=== PATIENT | male | born 1960 | race African-American/Black ===

== ENCOUNTER 2016-08-18 14:54 | Emergency (ER) | payer OTHER ==
[2014-02-09 15:28] VITALS: BP 159/97
[~2016-08-18 14:54] MED LIST: ALPR0.254 PO; ASPI-482 PO; CYCL5TAB PO; HYDR12.58 PO; LISI40TA PO; METH5TAB2 PO; METO50TA2 PO
[2016-08-24] MEDS ORDERED: HYDR-971 PO (11:16)
== END 2016-08-18 15:19 | disposition left against medical advice (07) ==
LOC: ER 14:54
DX: R10.9 Unspecified abdominal pain (principal); Z53.21 Procedure and treatment not carried out due to patient leaving prior to being seen by health care provider

== ENCOUNTER → 2016-10-08 | Outpatient (CLI) | payer OTHER ==
[2016-08-24 11:00] VITALS: BP 162/67
[~2016-10-08] MED LIST changes: +GADOBUTROL 10 MMOL/10 ML VIAL IV ONE; +HYDR-971 PO
--- NOTE | 2016-10-08 15:09 | RAD ---
EXAM: MRI abdomen with and without contrast HISTORY: Abdominal pain and back pain. Assess for pancreatic mass. TECHNIQUE: MRI of the abdomen was performed before and after the intravenous administration of 10 mL Gadavist. Three-dimensional reconstructions of the biliary tree were also performed. COMPARISON: 08/24/2016. FINDINGS: Liver: The liver is not completely included on all series. There is no significant steatosis. There are no suspicious hepatic lesions. Biliary tree: The gallbladder is unremarkable. The common duct is not dilated. There are no suspicious pancreatic parenchymal lesions. The pancreatic duct is at the upper limits of normal caliber at 3.5 mm. There are multiple mildly dilated pancreatic ductal side branches. Other findings: There is an enhancing T2 hyperintense mass posteriorly in the right interpolar region that measures 1.7 cm. This is consistent with a small renal cell carcinoma. There is a small cyst in the left kidney. There is some atherosclerotic irregularity along the left aspect of the abdominal aorta. There may be a penetrating atherosclerotic ulcer on the left measures 10 x 5 mm. There is no interval change since 08/24/2016. The adrenal glands and spleen are unremarkable. IMPRESSION: 1. 1.7 cm enhancing mass in the right kidney consistent with a small renal cell carcinoma. Ongoing follow-up/management is recommended. 2. No pancreatic parenchymal mass is appreciated. Mild prominence of the pancreatic duct and its side branches can be seen in the setting of chronic pancreatitis. Correlate for such history. 3. Moderate atherosclerotic irregularity of the abdominal aorta, possibly with a stable small penetrating atherosclerotic ulcer on the left. Correlate for this is a cause of symptoms.
== END | disposition home or self-care (01) ==
LOC: MRI 11:30
PROVIDERS: ATTEND Internal Medicine Gastroenterology
DX: K86.9 Disease of pancreas, unspecified (principal); N28.89 Other specified disorders of kidney and ureter; C64.1 Malignant neoplasm of right kidney, except renal pelvis
CPT/HCPCS: 74183

== ENCOUNTER 2017-03-13 19:52 | Emergency (ER) | payer OTHER ==
[~2017-03-13] VITALS: Ht 180.3 cm; Wt 117.9 kg
[~2017-03-13 19:52] MED LIST changes: -GADOBUTROL 10 MMOL/10 ML VIAL IV ONE
[2017-03-13] MEDS ORDERED: ONDANSETRON PF 4 MG/2 ML VIAL. IV ONE (20:30)
[2017-03-13] MEDS ORDERED: IV NORMAL SALINE 500ML BAG 500 ML IV ONE (20:30)
[2017-03-13 20:42] LABS: BILIRUBIN,URINE NEGATIVE (NEG); GLUCOSE,URINE NEGATIVE (NEG); NITRITE,URINE NEGATIVE (NEG); PH,URINE 6.5; PROTEIN,URINE NEGATIVE (NEG-TRACE)
[2017-03-13] MEDS: fentaNYL PF VIAL 100 MCG/2 ML VIAL IV PRN ×2 (20:55→22:55)
[2017-03-13 20:59] LABS: BACTERIA,URINE 0 /HPF (0-FEW); RBC,URINE OCC /HPF (0-2); SQUAMOUS EPITHELIAL CELL,UR FEW /LPF; WBC,URINE OCC /HPF (0-4)
[2017-03-13 21:03] LABS: BASO # 0.1 x10^3/uL (0.0-0.2); BASO % 1 % (0-3); EOS % 3 % (0-3); HEMATOCRIT 44.4 % (39.0-53.0); LYMPH # 2.4 x10^3/uL (1.0-4.8); LYMPH % 27 % (24-48); MEAN CORPUSCULAR HEMOGLOBIN 31 pg (25-35); MEAN CORPUSCULAR HGB CONC 34 g/dL (31-37); MEAN CORPUSCULAR VOLUME 93 fL (79-100); MONO % 6 % (0-9); NEUT % 63 % (31-73); PLATELET COUNT 131 x10^3/uL (140-400); RED CELL DISTRIBUTION WIDTH 14.5 % (11.5-14.5)
[2017-03-13 21:15] LABS: CALCIUM 9.1 mg/dL (8.5-10.1); CREATININE 1.1 mg/dL (0.7-1.3); GFR 83.2; POTASSIUM 4.2 mmol/L (3.5-5.1)
[2017-03-13] MEDS ORDERED: CONTRAST GIVEN MC PRN (21:15)
[2017-03-13] MEDS ORDERED: IOHEXOL 300 MG/ML 75 ML VIAL IV ONE (21:15)
[2017-03-13 21:21] LABS: ALBUMIN 3.6 g/dL (3.4-5.0); ALBUMIN/GLOBULIN RATIO 0.7 (1.0-1.7); TOTAL BILIRUBIN 0.4 mg/dL (0.2-1.0); TOTAL PROTEIN 8.8 g/dL (6.4-8.2)
--- NOTE | 2017-03-13 22:01 | RAD ---
EXAM: Abdomen and pelvis CT with intravenous contrast. HISTORY: Right lower quadrant pain. TECHNIQUE: Computed tomographic images of the abdomen and pelvis were obtained following the administration of 75 cc Omnipaque 300 intravenous contrast. Multiplanar reformatting was performed. *One or more of the following individualized dose reduction techniques were utilized for this examination: 1. Automated exposure control. 2. Adjustment of the mA and/or kV according to patient size. 3. Use of iterative reconstruction technique. COMPARISON: There is no prior study for comparison at the time of dictation. FINDINGS: Evaluation of the lower thorax demonstrates no infiltrate, effusion or pneumothorax. There is calcification of the mitral valve annulus. The heart is normal in size. No focal hepatic lesion is seen. The gallbladder, pancreas, spleen and adrenal glands are unremarkable. There is a 3.3 cm hypodense lesion within the lateral upper mid zone of the right kidney. There is no obstructive uropathy. There is no appendicitis. No abnormally thickened or dilated loop of bowel is seen. There is distal colonic diverticulosis without diverticulitis. There is nonspecific fatty stranding along the inferior right hepatic lobe and within the lateral right mid abdomen. There is aortobiiliac atherosclerosis. The bladder is unremarkable. There is degenerative change within the spine. IMPRESSION: 1. Nonspecific fatty stranding along the inferior right hepatic lobe and lateral right midabdomen. There is no evidence of a hepatic or colonic etiology. The possibility of stranding related to the adjacent right kidney is not excluded. Correlate with urinalysis to exclude ascending urinary tract infection. 2. 3.3 cm hypodense lesion within the lateral upper mid zone of the right kidney, the attenuation which is greater than expected for a simple cyst. Renal sonography may be useful for characterization. 3. Colonic diverticulosis without diverticulitis. Electronically signed by: Esperanza Bai MD (03/13/2017 9:58 PM) [facility]
--- NOTE | 2017-03-13 23:02 | RAD ---
EXAM: Renal sonogram complete. HISTORY: Scar tissue status post right nephrectomy. TECHNIQUE: Sonographic imaging of the right kidney was performed. COMPARISON: CT obtained on the same date. FINDINGS: The right kidney measures 11.5 cm [id number]. There is 2.8 cm bandlike hyperechoic region along the upper pole of the right kidney, possibly corresponding with scarring status post reported recent partial nephrectomy surgery. There is no clear solid or cystic renal parenchymal lesion. There is no hydronephrosis. The left kidney is not assessed. IMPRESSION: 2.8 cm bandlike hyperechoic region along the upper pole the right kidney, possibly corresponding scarring status post recent nephrectomy surgery. No suspicious solid or cystic lesion is seen. There is no hydronephrosis. Given a history of renal cell carcinoma, follow-up can be performed to exclude a recurrent or residual lesion in this location. Electronically signed by: Esperanza Bai MD (03/13/2017 10:59 PM) [facility]
[2017-03-13 23:11] VITALS: BP 143/100
[2017-03-13] MEDS ORDERED: HYDR-971 PO (23:36)
--- NOTE | 2017-03-13 23:36 | PHYS DOC ---
Past Medical History Past Medical History: Diverticulitis, Heart Disease, Hypertension Additional Past Medical Histor: renal cell cancer Past Surgical History: Coronary Bypass Surgery, Other Additional Past Surgical Histo: Bilateral knee arthroscopy. laproscopic rlq abd Alcohol Use: None Drug Use: None Adult General Chief Complaint Chief Complaint: ABDOMINAL PAIN HPI HPI Patient is a 56 year old male who presents with abdominal pain. Patient reports three-day history of right lower quadrant and right mid abdominal pain. He states the pain is sharp. He denies fevers or chills, nausea or vomiting, diarrhea or constipation, dysuria or hematuria. Denies previous history of similar pain. He states he is status post recent resection of renal cell carcinoma in 11/[address] Shaffer at [facility]. He had recent follow up appointment 5 days ago & was cleared to return to work. Also has history of CAD & CABG. Review of Systems Review of Systems Constitutional: Denies fever or chills Eyes: Denies change in visual acuity HENT: Denies nasal congestion or sore throat Respiratory: Denies cough or shortness of breath Cardiovascular: Denies chest pain or edema GI: Reports abdominal pain, denies nausea, vomiting, bloody stools or diarrhea : Denies dysuria or hematuria Musculoskeletal: Denies back pain or joint pain Integument: Denies rash or skin lesions Neurologic: Denies headache, focal weakness or sensory changes Current Medications Current Medications Current Medications Medications (Trade) Dose Ordered Sig/Jordan Start Time Stop Time Status Last Admin Dose Admin Fentanyl Citrate (Fentanyl 2ml Vial) 50 mcg PRN Q15MIN PRN 03/13/17 20:30 03/13/17 23:55 DC 03/13/17 22:55 50 MCG Info (Do NOT chart on this entry -- for MONITORING) 1 each PRN DAILY PRN 03/13/17 21:15 03/13/17 23:55 DC Iohexol (Omnipaque 300 Mg/ml) 75 ml 1X ONCE 03/13/17 21:15 03/13/17 21:16 DC 03/13/17 21:35 75 ML Ondansetron HCl (Zofran) 4 mg 1X ONCE 03/13/17 20:30 03/13/17 20:31 DC 03/13/17 20:54 4 MG Sodium Chloride 500 ml @ 0 mls/hr 1X ONCE 03/13/17 20:30 03/13/17 20:31 DC 03/13/17 20:54 999 MLS/HR Allergies Allergies Allergies Coded Allergies Type Severity Reaction Last Updated Verified No Known Drug Allergies 09/02/13 No Physical Exam Physical Exam Constitutional: Well developed, well nourished, no acute distress, non-toxic appearance. HENT: Normocephalic, atraumatic, bilateral external ears normal, oropharynx moist, nose normal. Eyes: PERRLA, EOMI, conjunctiva normal, no discharge. Neck: supple, no stridor. Cardiovascular: RRR, no murmurs, no edema. Lungs & Thorax: LCTAB, no wheezing, no respiratory distress. Abdomen: soft, right mid abdominal tenderness & RLQ tenderness without rebound/ guarding, no masses or pulsatile masses, well healed laparascopic wounds overlying the area of tenderness which are clean/dry/intact, no erythema/warmth/ swelling, no drainage, nondistended. Skin: Warm, dry, no erythema, no rash. Back: No CVA tenderness. Extremities: No tenderness, no edema. Neurologic: Alert and oriented X 3, no focal deficits noted. Psychologic: Affect normal, judgement normal, mood normal. Current Patient Data Vital Signs Vital Signs Date Time Temp Pulse Resp B/P (MAP) Pulse Ox O2 Delivery O2 Flow Rate FiO2 03/13/17 23:11 65 143/100 (114) 03/13/17 22:55 15 96 Room Air 03/13/17 20:08 98.6 98.6 Lab Values Laboratory Tests Test 03/13/17 20:10 03/13/17 20:50 Urine Collection Type Clean catch Urine Color Yellow Urine Clarity Clear Urine pH 6.5 Urine Specific [place] 1.015 Urine Protein Negative mg/dL (NEG-TRACE) Urine Glucose (UA) Negative mg/dL (NEG) Urine Ketones (Stick) Negative mg/dL (NEG) Urine Blood Negative (NEG) Urine Nitrite Negative (NEG) Urine Bilirubin Negative (NEG) Urine Urobilinogen Dipstick 1.0 mg/dL (0.2 mg/dL) Urine Leukocyte Esterase Negative (NEG) Urine RBC Occ /HPF (0-2) Urine WBC Occ /HPF (0-4) Urine Squamous Epithelial Cells Few /LPF Urine Bacteria 0 /HPF (0-FEW) White Blood Count 9.0 x10^3/uL (4.0-11.0) Red Blood Count 4.80 x10^6/uL (4.30-5.70) Hemoglobin 15.0 g/dL (13.0-17.5) Hematocrit 44.4 % (39.0-53.0) Mean Corpuscular Volume 93 fL (79-100) Mean Corpuscular Hemoglobin 31 pg (25-35) Mean Corpuscular Hemoglobin Concent 34 g/dL (31-37) Red Cell Distribution Width 14.5 % (11.5-14.5) Platelet Count 131 x10^3/uL (140-400) L Neutrophils (%) (Auto) 63 % (31-73) Lymphocytes (%) (Auto) 27 % (24-48) Monocytes (%) (Auto) 6 % (0-9) Eosinophils (%) (Auto) 3 % (0-3) Basophils (%) (Auto) 1 % (0-3) Neutrophils # (Auto) 5.6 x10^3uL (1.8-7.7) Lymphocytes # (Auto) 2.4 x10^3/uL (1.0-4.8) Monocytes # (Auto) 0.6 x10^3/uL (0.0-1.1) Eosinophils # (Auto) 0.3 x10^3/uL (0.0-0.7) Basophils # (Auto) 0.1 x10^3/uL (0.0-0.2) Sodium Level 142 mmol/L (136-145) Potassium Level 4.2 mmol/L (3.5-5.1) Chloride Level 105 mmol/L (98-107) Carbon Dioxide Level 30 mmol/L (21-32) Anion Gap 7 (6-14) Blood Urea Nitrogen 13 mg/dL (8-26) Creatinine 1.1 mg/dL (0.7-1.3) Estimated GFR (Cockcroft-Gault) 83.2 BUN/Creatinine Ratio 12 (6-20) Glucose Level 97 mg/dL (70-99) Calcium Level 9.1 mg/dL (8.5-10.1) Total Bilirubin 0.4 mg/dL (0.2-1.0) Aspartate Amino Transferase (AST) 30 U/L (15-37) Alanine Aminotransferase (ALT) 15 U/L (16-63) L Alkaline Phosphatase 75 U/L (46-116) Total Protein 8.8 g/dL (6.4-8.2) H Albumin 3.6 g/dL (3.4-5.0) Albumin/Globulin Ratio 0.7 (1.0-1.7) L Laboratory Tests 03/13/17 20:50 Laboratory Tests 03/13/17 20:50 EKG EKG [] Radiology/Procedures Radiology/Procedures PROCEDURE: RENAL COMPLETE RIGHT EXAM: Renal sonogram complete. HISTORY: Scar tissue status post right nephrectomy. TECHNIQUE: Sonographic imaging of the right kidney was performed. COMPARISON: CT obtained on the same date. FINDINGS: The right kidney measures 11.5 cm [id number]. There is 2.8 cm bandlike hyperechoic region along the upper pole of the right kidney, possibly corresponding with scarring status post reported recent partial nephrectomy surgery. There is no clear solid or cystic renal parenchymal lesion. There is no hydronephrosis. The left kidney is not assessed. IMPRESSION: 2.8 cm bandlike hyperechoic region along the upper pole the right kidney, possibly corresponding scarring status post recent nephrectomy surgery. No suspicious solid or cystic lesion is seen. There is no hydronephrosis. Given a history of renal cell carcinoma, follow-up can be performed to exclude a recurrent or residual lesion in this location. Electronically signed by: Esperanza Waite MD (03/13/2017 10:59 PM) [facility] DICTATED and SIGNED BY: ESPERANZA WAITE MD DATE: 03/13/17 0883 PROCEDURE: CT ABD PELV W/ IV CONTRST ONLY ADDENDUM Addendum: Additional history is provided that the patient has undergone relatively recent right partial nephrectomy surgery for renal cell carcinoma. The aforementioned hypodense lesion within the lateral upper mid zone of the kidney and surrounding stranding may be due to recent postoperative change. Continued follow-up can be performed to exclude a recurrent or residual lesion in this location. Electronically signed by: Esperanza Waite MD (03/13/2017 11:00 PM) [facility] DICTATED AND SIGNED BY: ESPERANZA WAITE MD DATE: 03/13/17 [id number] CC: FROYLAN UGARTE MD; ERIC BETANCOURT MD ~ EXAM: Abdomen and pelvis CT with intravenous contrast. HISTORY: Right lower quadrant pain. TECHNIQUE: Computed tomographic images of the abdomen and pelvis were obtained following the administration of 75 cc Omnipaque 300 intravenous contrast. Multiplanar reformatting was performed. *One or more of the following individualized dose reduction techniques were utilized for this examination: 1. Automated exposure control. 2. Adjustment of the mA and/or kV according to patient size. 3. Use of iterative reconstruction technique. COMPARISON: There is no prior study for comparison at the time of dictation. FINDINGS: Evaluation of the lower thorax demonstrates no infiltrate, effusion or pneumothorax. There is calcification of the mitral valve annulus. The heart is normal in size. No focal hepatic lesion is seen. The gallbladder, pancreas, spleen and adrenal glands are unremarkable. There is a 3.3 cm hypodense lesion within the lateral upper mid zone of the right kidney. There is no obstructive uropathy. There is no appendicitis. No abnormally thickened or dilated loop of bowel is seen. There is distal colonic diverticulosis without diverticulitis. There is nonspecific fatty stranding along the inferior right hepatic lobe and within the lateral right mid abdomen. There is aortobiiliac atherosclerosis. The bladder is unremarkable. There is degenerative change within the spine. IMPRESSION: 1. Nonspecific fatty stranding along the inferior right hepatic lobe and lateral right midabdomen. There is no evidence of a hepatic or colonic etiology. The possibility of stranding related to the adjacent right kidney is not excluded. Correlate with urinalysis to exclude ascending urinary tract infection. 2. 3.3 cm hypodense lesion within the lateral upper mid zone of the right kidney, the attenuation which is greater than expected for a simple cyst. Renal sonography may be useful for characterization. 3. Colonic diverticulosis without diverticulitis. Electronically signed by: Esperanza Waite MD (03/13/2017 9:58 PM) [facility] DICTATED and SIGNED BY: ESPERANZA WAITE MD DATE: 03/13/172152 [] Course & Med Decision Making Course & Med Decision Making Pertinent Labs and Imaging studies reviewed. (See chart for details) The patient presents with abdominal pain. Gave IV fluids, pain medication, zofran. Obtained labs, UA, CT. CT shows abnormality of the kidney so US was obtained to further evaluate. Ultimately the imaging is consistent with changes related to his recent surgery. No evidence of acute abnormality. I offered to contact his urologist at [facility] but he stated that he could call in the morning to be seen for follow up. His pain improved, vitals were stable, labs unremarkable for acute abnormality. Gave prescription for norco for severe pain. Recommend follow up in the morning with urology. Return for high fever, severe pain, uncontrolled vomiting, any otherwise worsening condition. Discharged home in stable condition. [] Dragon Disclaimer Dragon Disclaimer This electronic medical record was generated, in whole or in part, using a voice recognition dictation system. Departure Departure Impression: Primary Impression: Abdominal pain Disposition: , SELF-CARE Condition: STABLE Referrals: ERIC BETANCOURT MD (PCP) Patient Instructions: Abdominal Pain, [id number] Additional Instructions: You were seen in the emergency department today for abdominal pain. Tests here did not show serious cause of your symptoms. Your CT scan only showed changes from your recent kidney surgery. Please rest, drink stay hydrated, take [place] as needed for severe pain. No drinking alcohol or driving while taking this medication. Please follow-up with your surgeon on Wednesday. Return to the emergency department for high fever, severe pain, uncontrolled vomiting, any otherwise worsening condition. Scripts Hydrocodone/Apap 5-325 (NORCO 5-325 TABLET) 1 Each Tablet 1 TAB PO PRN Q6HRS Y for PAIN, #10 TAB 0 Refills Prov: FROYLAN UGARTE MD 03/13/17 FROYLAN UGARTE MD Mar 13, 2017 23:36
== END 2017-03-13 23:47 | disposition home or self-care (01) ==
LOC: ER 19:52
DX: R10.31 Right lower quadrant pain (principal); I11.9 Hypertensive heart disease without heart failure; Z85.528 Personal history of other malignant neoplasm of kidney; Z95.1 Presence of aortocoronary bypass graft
CPT/HCPCS: 36415; 74177; 76775; 80053; 81001; 85025; 96361; 96374; 96375; 96376; 99285; J2405; J3010; J7040; Q9967

== ENCOUNTER 2017-04-12 14:37 | Emergency (ER) | payer OTHER ==
[~2017-04-12] VITALS: Ht 180.3 cm; Wt 120.2 kg
[2017-04-12] MEDS ORDERED: ASPIRIN ENTERIC COATED 325 MG TABLET.DR. PO ONE (14:45)
--- NOTE | 2017-04-12 14:54 | EKG ---
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
--- NOTE | 2017-04-12 15:05 | RAD ---
Indication left-sided chest pain. A single view of the chest was obtained and is compared to an examination 02/09/2014. Postoperative changes are noted. There is mild enlargement of the cardiac silhouette. There is no congestive heart failure. There is no focal consolidated pneumonia significant pleural fluid collection or pneumothorax. IMPRESSION: Mild enlargement of the cardiac silhouette. No focal process seen in the chest
--- NOTE | 2017-04-12 15:17 | PHYS DOC ---
Past Medical History Past Medical History: Diverticulitis, Heart Disease, Hypertension Additional Past Medical Histor: renal cell cancer Past Surgical History: Coronary Bypass Surgery, Other Additional Past Surgical Histo: Bilateral knee arthroscopy. laproscopic rlq abd Alcohol Use: None Drug Use: None Adult General Chief Complaint Chief Complaint: CHEST PAIN HPI HPI Patient is a 56 year old male presenting to the emergency department for evaluation of chest pain that has been going on for 2 days off and on. It says that it is left sided and is a sharp achy pain that is only present with movements of his arms and his torso and he has no pain in between episodes. Patient says that exertion does not bring his pain on. 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 He called ask a nurse and they told him to come to the emergency Department immediately. Patient does have a history of coronary artery disease with prior CABG at [facility] and he had a stress test in November of this year that was normal. Patient is in no obvious distress with normal vital signs. Review of Systems Review of Systems Constitutional: Denies fever or chills [] Eyes: Denies change in visual acuity, redness, or eye pain [] HENT: Denies nasal congestion or sore throat [] Respiratory: Denies cough or shortness of breath [] Cardiovascular: + CP GI: Denies abdominal pain, nausea, vomiting, bloody stools or diarrhea [] : Denies dysuria or hematuria [] Musculoskeletal: Denies back pain or joint pain [] Integument: Denies rash or skin lesions [] Neurologic: Denies headache, focal weakness or sensory changes [] Current Medications Current Medications Current Medications Medications (Trade) Dose Ordered Sig/Jordan Start Time Stop Time Status Last Admin Dose Admin Aspirin (Ecotrin) 325 mg 1X ONCE 04/12/17 14:45 04/12/17 14:46 DC 04/12/17 15:12 325 MG Magnesium Oxide (Magnesium Oxide) 800 mg 1X STAT 04/12/17 16:28 04/12/17 16:30 DC 04/12/17 16:49 800 MG Allergies Allergies Allergies Coded Allergies Type Severity Reaction Last Updated Verified No Known Drug Allergies 09/02/13 No Physical Exam Physical Exam Constitutional: Well developed, well nourished, no acute distress, non-toxic appearance. [] HENT: Normocephalic, atraumatic, bilateral external ears normal, oropharynx moist, no oral exudates, nose normal. [] Eyes: PERRLA, EOMI, conjunctiva normal, no discharge. [] Neck: Normal range of motion, no tenderness, supple, no stridor. [] Cardiovascular:Heart rate regular rhythm, no murmur [] Lungs & Thorax: Bilateral breath sounds clear to auscultation. Abdomen: Bowel sounds normal, soft, no tenderness, no masses, no pulsatile masses. [] Skin: Warm, dry, no erythema, no rash. [] Back: No tenderness, no CVA tenderness. [] Extremities: No tenderness, no cyanosis, no clubbing, ROM intact, no edema. On movements of bilateral upper arms it does reproduce his left sided chest pain. Neurologic: Alert and oriented X 3, normal motor function, normal sensory function, no focal deficits noted. [] Current Patient Data Vital Signs Vital Signs Date Time Temp Pulse Resp B/P (MAP) Pulse Ox O2 Delivery O2 Flow Rate FiO2 04/12/17 14:55 98.0 55 14 142/79 (100) 99 Room Air 98.0 Lab Values Laboratory Tests Test 04/12/17 15:50 White Blood Count 6.7 x10^3/uL (4.0-11.0) Red Blood Count 4.41 x10^6/uL (4.30-5.70) Hemoglobin 14.2 g/dL (13.0-17.5) Hematocrit 40.3 % (39.0-53.0) Mean Corpuscular Volume 91 fL (79-100) Mean Corpuscular Hemoglobin 32 pg (25-35) Mean Corpuscular Hemoglobin Concent 35 g/dL (31-37) Red Cell Distribution Width 13.8 % (11.5-14.5) Platelet Count 130 x10^3/uL (140-400) L Neutrophils (%) (Auto) 57 % (31-73) Lymphocytes (%) (Auto) 32 % (24-48) Monocytes (%) (Auto) 7 % (0-9) Eosinophils (%) (Auto) 3 % (0-3) Basophils (%) (Auto) 1 % (0-3) Neutrophils # (Auto) 3.9 x10^3uL (1.8-7.7) Lymphocytes # (Auto) 2.1 x10^3/uL (1.0-4.8) Monocytes # (Auto) 0.5 x10^3/uL (0.0-1.1) Eosinophils # (Auto) 0.2 x10^3/uL (0.0-0.7) Basophils # (Auto) 0.0 x10^3/uL (0.0-0.2) Prothrombin Time 13.3 SEC (11.7-14.0) Prothrombin Time INR 1.1 (0.8-1.1) PTT 24 SEC (24-38) Sodium Level 140 mmol/L (136-145) Potassium Level 4.1 mmol/L (3.5-5.1) Chloride Level 103 mmol/L (98-107) Carbon Dioxide Level 29 mmol/L (21-32) Anion Gap 8 (6-14) Blood Urea Nitrogen 18 mg/dL (8-26) Creatinine 1.2 mg/dL (0.7-1.3) Estimated GFR (Cockcroft-Gault) 75.2 BUN/Creatinine Ratio 15 (6-20) Glucose Level 86 mg/dL (70-99) Calcium Level 9.8 mg/dL (8.5-10.1) Magnesium Level 1.5 mg/dL (1.8-2.4) L Total Bilirubin 0.3 mg/dL (0.2-1.0) Aspartate Amino Transferase (AST) 36 U/L (15-37) Alanine Aminotransferase (ALT) 25 U/L (16-63) Alkaline Phosphatase 76 U/L (46-116) Troponin I Quantitative < 0.017 ng/mL (0.000-0.055) UI-Kkx-T-Type Natriuretic Peptide 1452 pg/mL (0-124) H Total Protein 8.2 g/dL (6.4-8.2) Albumin 3.5 g/dL (3.4-5.0) Albumin/Globulin Ratio 0.7 (1.0-1.7) L Lipase 105 U/L (73-393) Laboratory Tests 04/12/17 15:50 Laboratory Tests 04/12/17 15:50 EKG EKG Sinus rhythm at 59 beats per minutes with normal axis right bundle branch block no obvious ST elevation or depression and normal T waves. Radiology/Procedures Radiology/Procedures Indication left-sided chest pain. A single view of the chest was obtained and is compared to an examination 02/09/2014. Postoperative changes are noted. There is mild enlargement of the cardiac silhouette. There is no congestive heart failure. There is no focal consolidated pneumonia significant pleural fluid collection or pneumothorax. IMPRESSION: Mild enlargement of the cardiac silhouette. No focal process seen in the chest DICTATED and SIGNED BY: SHIRA PETERSON MD DATE: 04/12/17 1501 Course & Med Decision Making Course & Med Decision Making Patient's symptoms are very atypical for acute coronary syndrome. We will check labs regardless and if negative can likely go home given EKG and troponin will be negative more than 6 hours out from onset of symptoms. EKG and troponin are both negative however BNP is slightly elevated. He says he does not know what his baseline BNP is but he thinks he does have congestive heart failure. Continues to have no pain in the emergency department he only has pain if he is moving his arms especially flexion of his elbow and shoulder. On reexam patient told me that he saw his ore fielder for this on Wednesday and his ore fielder cleared him and put him on a Holter monitor however he is not return the Holter monitor to his ore fielder at this time. His ore fielder told him that he did not think this was his heart. I offered admission patient given he has cardiac disease with an elevated BNP however he refused stating that he much rather go home. Patient aware and agreeable with plan for discharge and verbalized understanding of the need for short-term follow-up in the strict ED return precautions discussed worsening pain shortness of breath or other general concerns. Dragon Disclaimer Dragon Disclaimer This electronic medical record was generated, in whole or in part, using a voice recognition dictation system. Departure Departure Impression: Primary Impression: Chest wall pain Additional Impressions: Elevated brain natriuretic peptide (BNP) level Hypomagnesemia Disposition: 01 HOME, SELF-CARE Condition: STABLE Referrals: ERIC BETANCOURT MD (PCP) Patient Instructions: Chest Pain (Nonspecific) Additional Instructions: FOLLOW WITH YOUR FISHER LINE AND COME BACK TO THE ED SOONER WITH ANY NEW OR WORSENING SYMPTOMS. THANK YOU! Problem Qualifiers MICHELE MORIN DO Apr 12, 2017 15:16
[2017-04-12 16:06] LABS: BASO % 1 % (0-3); EOS % 3 % (0-3); HEMATOCRIT 40.3 % (39.0-53.0); HEMOGLOBIN 14.2 g/dL (13.0-17.5); LYMPH # 2.1 x10^3/uL (1.0-4.8); LYMPH % 32 % (24-48); MEAN CORPUSCULAR HEMOGLOBIN 32 pg (25-35); MEAN CORPUSCULAR HGB CONC 35 g/dL (31-37); MEAN CORPUSCULAR VOLUME 91 fL (79-100); MONO % 7 % (0-9); NEUT % 57 % (31-73); PLATELET COUNT 130 x10^3/uL (140-400); RED BLOOD COUNT 4.41 x10^6/uL (4.30-5.70); RED CELL DISTRIBUTION WIDTH 13.8 % (11.5-14.5); WHITE BLOOD COUNT 6.7 x10^3/uL (4.0-11.0)
[2017-04-12 16:16] LABS: INR 1.1 (0.8-1.1); PROTHROMBIN TIME PATIENT 13.3 SEC (11.7-14.0)
[2017-04-12 16:21] LABS: CALCIUM 9.8 mg/dL (8.5-10.1); CREATININE 1.2 mg/dL (0.7-1.3); GFR 75.2; POTASSIUM 4.1 mmol/L (3.5-5.1)
[2017-04-12 16:27] LABS: ALBUMIN 3.5 g/dL (3.4-5.0); ALBUMIN/GLOBULIN RATIO 0.7 (1.0-1.7); MAGNESIUM 1.5 mg/dL (1.8-2.4); TOTAL BILIRUBIN 0.3 mg/dL (0.2-1.0); TOTAL PROTEIN 8.2 g/dL (6.4-8.2)
[2017-04-12] MEDS ORDERED: MAGNESIUM OXIDE 400 MG TABLET PO STA (16:28)
[2017-04-12 16:36] VITALS: BP 189/102
== END 2017-04-12 17:05 | disposition home or self-care (01) ==
LOC: ER 14:37
DX: R07.89 Other chest pain (principal); E83.42 Hypomagnesemia; R79.89 Other specified abnormal findings of blood chemistry; I11.9 Hypertensive heart disease without heart failure; I25.10 Atherosclerotic heart disease of native coronary artery without angina pectoris; Z85.528 Personal history of other malignant neoplasm of kidney; Z95.1 Presence of aortocoronary bypass graft; Z79.82 Long term (current) use of aspirin
CPT/HCPCS: 10060; 36415; 71010; 80053; 83690; 83735; 83880; 84484; 85025; 85610; 85730; 93005; 99285; 99283-25

== ENCOUNTER 2017-06-23 09:59 | Emergency (ER) | payer OTHER ==
[~2017-06-23] VITALS: Ht 180.3 cm; Wt 120.2 kg
[2017-06-23] MEDS ORDERED: ONDANSETRON PF 4 MG/2 ML VIAL. IV ONE (10:30)
[2017-06-23] MEDS ORDERED: MORPHINE SULFATE 10 MG/ML VIAL. IV ONE (10:30)
[2017-06-23] MEDS ORDERED: FAMOTIDINE 20 MG/2 ML VIAL IVP ONE (10:30)
[2017-06-23] MEDS ORDERED: IV NORMAL SALINE 1000ML BAG 1,000 ML IV ONE (10:30)
[2017-06-23 10:41] LABS: BASO # 0.1 x10^3/uL (0.0-0.2); BASO % 1 % (0-3); EOS % 4 % (0-3); HEMATOCRIT 40.7 % (39.0-53.0); HEMOGLOBIN 13.8 g/dL (13.0-17.5); LYMPH # 2.5 x10^3/uL (1.0-4.8); LYMPH % 28 % (24-48); MEAN CORPUSCULAR HEMOGLOBIN 32 pg (25-35); MEAN CORPUSCULAR HGB CONC 34 g/dL (31-37); MEAN CORPUSCULAR VOLUME 94 fL (79-100); MONO % 9 % (0-9); NEUT % 58 % (31-73); PLATELET COUNT 179 x10^3/uL (140-400); RED BLOOD COUNT 4.36 x10^6/uL (4.30-5.70); RED CELL DISTRIBUTION WIDTH 13.7 % (11.5-14.5); WHITE BLOOD COUNT 8.8 x10^3/uL (4.0-11.0)
--- NOTE | 2017-06-23 10:42 | PHYS DOC ---
Past Medical History Past Medical History: Cancer, Diverticulitis, Heart Disease, Hypertension Additional Past Medical Histor: renal cell cancer Past Surgical History: Coronary Bypass Surgery, Other Additional Past Surgical Histo: Bilateral knee arthroscopy. laproscopic rlq abd - R partial nephrectomy Alcohol Use: None Drug Use: None Adult General Chief Complaint Chief Complaint: ABDOMINAL PAIN HPI HPI Patient is a 56 year old male who presents with right mid abdomen pain that has been going on for one week. Patient states he had a partial right nephrectomy in November 2016 at [facility]. He states since then his had intermittent mid abdominal pain. He states he followed up with his own urologist who told him this pain could be scar tissue. Patient states for the last 1 week he feels the pain is worse than normal and would like to be evaluated. Patient denies any nausea vomiting urgency frequency dysuria. Patient states his pain is worse on deep breaths as well as pushing on the surgical site. Review of Systems Review of Systems Constitutional: Denies fever or chills [] Eyes: Denies change in visual acuity, redness, or eye pain [] HENT: Denies nasal congestion or sore throat [] Respiratory: Denies cough or shortness of breath [] Cardiovascular: No additional information not addressed in HPI [] GI: Right mid abdomen pain, denies nausea, vomiting, bloody stools or diarrhea [ ] : Denies dysuria or hematuria [] Musculoskeletal: Denies back pain or joint pain [] Integument: Denies rash or skin lesions [] Neurologic: Denies headache, focal weakness or sensory changes [] All other systems were reviewed and found to be within normal limits, except as documented in this note. Current Medications Current Medications Current Medications Medications (Trade) Dose Ordered Sig/Jordan Start Time Stop Time Status Last Admin Dose Admin Diphenhydramine HCl (Benadryl) 25 mg 1X ONCE 06/23/17 11:00 06/23/17 11:01 DC 06/23/17 11:02 25 MG Famotidine (Pepcid Vial) 20 mg 1X ONCE 06/23/17 10:30 06/23/17 10:31 DC 06/23/17 10:41 20 MG Morphine Sulfate 5 mg 1X ONCE 06/23/17 10:30 06/23/17 10:31 DC 06/23/17 10:41 5 MG Ondansetron HCl (Zofran) 4 mg 1X ONCE 06/23/17 10:30 06/23/17 10:31 DC 06/23/17 10:40 4 MG Sodium Chloride 1,000 ml @ 1,000 mls/hr 1X ONCE 06/23/17 10:30 06/23/17 11:29 DC 06/23/17 10:41 1,000 MLS/HR Allergies Allergies Allergies Coded Allergies Type Severity Reaction Last Updated Verified No Known Drug Allergies 09/02/13 No Physical Exam Physical Exam Constitutional: Well developed, well nourished, no acute distress, non-toxic appearance. [] HENT: Normocephalic, atraumatic, bilateral external ears normal, oropharynx moist, no oral exudates, nose normal. [] Eyes: PERRLA, EOMI, conjunctiva normal, no discharge. [] Neck: Normal range of motion, no tenderness, supple, no stridor. [] Cardiovascular:Heart rate regular rhythm, no murmur [] Lungs & Thorax: Bilateral breath sounds clear to auscultation [] Abdomen: Old healed surgical scars noted on the right mid abdomen with tenderness over the surgical area. Bowel sounds normal, soft, no masses, no pulsatile masses. No right upper quadrant or right lower quadrant pain or tenderness, negative psoas sign, negative obturator sign. No guarding no rebound pain or tenderness. Skin: Warm, dry, no erythema, no rash. [] Back: No tenderness, no CVA tenderness. [] Extremities: No tenderness, no cyanosis, no clubbing, ROM intact, no edema. [] Neurologic: Alert and oriented X 3, normal motor function, normal sensory function, no focal deficits noted. [] Psychologic: Affect normal, judgement normal, mood normal. [] Current Patient Data Vital Signs Vital Signs Date Time Temp Pulse Resp B/P (MAP) Pulse Ox O2 Delivery O2 Flow Rate FiO2 06/23/17 11:01 66 14 123/68 (86) 97 Room Air 06/23/17 10:05 97.7 97.7 Lab Values Laboratory Tests Test 06/23/17 10:10 06/23/17 10:45 White Blood Count 8.8 x10^3/uL (4.0-11.0) Red Blood Count 4.36 x10^6/uL (4.30-5.70) Hemoglobin 13.8 g/dL (13.0-17.5) Hematocrit 40.7 % (39.0-53.0) Mean Corpuscular Volume 94 fL (79-100) Mean Corpuscular Hemoglobin 32 pg (25-35) Mean Corpuscular Hemoglobin Concent 34 g/dL (31-37) Red Cell Distribution Width 13.7 % (11.5-14.5) Platelet Count 179 x10^3/uL (140-400) Neutrophils (%) (Auto) 58 % (31-73) Lymphocytes (%) (Auto) 28 % (24-48) Monocytes (%) (Auto) 9 % (0-9) Eosinophils (%) (Auto) 4 % (0-3) H Basophils (%) (Auto) 1 % (0-3) Neutrophils # (Auto) 5.1 x10^3uL (1.8-7.7) Lymphocytes # (Auto) 2.5 x10^3/uL (1.0-4.8) Monocytes # (Auto) 0.8 x10^3/uL (0.0-1.1) Eosinophils # (Auto) 0.3 x10^3/uL (0.0-0.7) Basophils # (Auto) 0.1 x10^3/uL (0.0-0.2) Sodium Level 138 mmol/L (136-145) Potassium Level 3.7 mmol/L (3.5-5.1) Chloride Level 100 mmol/L (98-107) Carbon Dioxide Level 28 mmol/L (21-32) Anion Gap 10 (6-14) Blood Urea Nitrogen 28 mg/dL (8-26) H Creatinine 1.3 mg/dL (0.7-1.3) Estimated GFR (Cockcroft-Gault) 68.6 BUN/Creatinine Ratio 22 (6-20) H Glucose Level 91 mg/dL (70-99) Calcium Level 10.0 mg/dL (8.5-10.1) Total Bilirubin 0.3 mg/dL (0.2-1.0) Aspartate Amino Transferase (AST) 29 U/L (15-37) Alanine Aminotransferase (ALT) 18 U/L (16-63) Alkaline Phosphatase 65 U/L (46-116) Total Protein 8.5 g/dL (6.4-8.2) H Albumin 3.4 g/dL (3.4-5.0) Albumin/Globulin Ratio 0.7 (1.0-1.7) L Lipase 133 U/L (73-393) Urine Collection Type Unknown Urine Color Yellow Urine Clarity Clear Urine pH 5.5 Urine Specific [place] 1.015 Urine Protein Negative mg/dL (NEG-TRACE) Urine Glucose (UA) Negative mg/dL (NEG) Urine Ketones (Stick) Negative mg/dL (NEG) Urine Blood Negative (NEG) Urine Nitrite Negative (NEG) Urine Bilirubin Negative (NEG) Urine Urobilinogen Dipstick 0.2 mg/dL (0.2 mg/dL) Urine Leukocyte Esterase Negative (NEG) Urine RBC Occ /HPF (0-2) Urine WBC 0 /HPF (0-4) Urine Squamous Epithelial Cells Few /LPF Urine Bacteria 0 /HPF (0-FEW) Laboratory Tests 06/23/17 10:10 Laboratory Tests 06/23/17 10:10 EKG EKG [] Radiology/Procedures Radiology/Procedures [] Course & Med Decision Making Course & Med Decision Making Pertinent Labs and Imaging studies reviewed. (See chart for details) This is a 56-year-old male patient presented to the ED today with a right mid abdominal pain. Patient had a partial right nephrectomy in November 2016 and was informed by the urologist he could have scar tissue that cause him pain. CBC CMP lipase with no acute findings, urine analysis is negative for infection. CT of the abdomen and pelvic was negative for any acute findings, CT was noted for nonspecific bladder wall thickening. Patient's urine and labs were negative. Patient has a urologist at [facility]. I recommended he follows up in the next 1 week. He was given prescription for 12 tablets of [place] to as needed for pain. Dragon Disclaimer Dragon Disclaimer This electronic medical record was generated, in whole or in part, using a voice recognition dictation system. Departure Departure Impression: Primary Impression: Abdominal pain Disposition: 01 HOME, SELF-CARE Condition: STABLE Referrals: ERIC BETANCOURT MD (PCP) follow up with your urologist on Wednesday Patient Instructions: Abdominal Pain Additional Instructions: You were seen for ongoing abdominal pain. Your CT of the abdomen and pelvic were negative for any acute findings. Your pain could be related to scar tissue formation as your urologist told you. Please follow-up with the urologist by calling the office today for a follow-up appointment. Scripts Hydrocodone/Apap 5-325 (NORCO 5-325 TABLET) 1 Each Tablet 1-2 TAB PO Q6-8HRS, #12 TAB Prov: JUVENAL MONK RN REVIEW 06/23/17 Ondansetron (ZOFRAN ODT) 4 Mg Tab.rapdis 1 TAB SL Q8HRS, #15 TAB Prov: JUVENAL MONK RN REVIEW 06/23/17 Problem Qualifiers Primary Impression: Abdominal pain Abdominal location: upper abdomen, unspecified Qualified Codes: R10.10 - Upper abdominal pain, unspecified BRITTANIJUVENAL JACINTO RN REVIEW Jun 23, 2017 10:42
[2017-06-23 11:00] LABS: BILIRUBIN,URINE NEGATIVE (NEG); GLUCOSE,URINE NEGATIVE (NEG); NITRITE,URINE NEGATIVE (NEG); PH,URINE 5.5; PROTEIN,URINE NEGATIVE (NEG-TRACE); UROBILINOGEN,URINE 0.2 mg/dL (0.2 mg/dL)
[2017-06-23] MEDS ORDERED: diphenhydrAMINE 50 MG/ML VIAL IVP ONE (11:00)
[2017-06-23 11:06] LABS: CREATININE 1.3 mg/dL (0.7-1.3); GFR 68.6; POTASSIUM 3.7 mmol/L (3.5-5.1)
[2017-06-23 11:11] LABS: ALBUMIN 3.4 g/dL (3.4-5.0); ALBUMIN/GLOBULIN RATIO 0.7 (1.0-1.7); TOTAL BILIRUBIN 0.3 mg/dL (0.2-1.0); TOTAL PROTEIN 8.5 g/dL (6.4-8.2)
[2017-06-23 11:18] LABS: BACTERIA,URINE 0 /HPF (0-FEW); RBC,URINE OCC /HPF (0-2); SQUAMOUS EPITHELIAL CELL,UR FEW /LPF; WBC,URINE 0 /HPF (0-4)
--- NOTE | 2017-06-23 11:38 | RAD ---
CT of the abdomen and pelvis 06/23/2017 Indication: Mid and right abdominal pain. Partial lumpectomy in November. Comparison study: CT of the abdomen and pelvis with contrast March 13, 2017. Findings: Visualized lung bases demonstrate no acute abnormality. Liver, gallbladder, spleen, pancreas are grossly unremarkable. Left adrenal gland is unremarkable. The right adrenal gland small and partially calcified similar to prior study. Mild. Number extremity and stranding extending into the right paracolic gutter is improved in the interim since comparison study. Left kidney is unremarkable in appearance. Previously seen posterior right renal masses not visualized. There is no bowel obstruction. No evidence of acute inflammatory change involving the visualized bowel is identified. The appendix is unremarkable in appearance. Bladder wall appears mildly thickened however the bladder is partially decompressed. Findings nonspecific. No evidence of acute osseous abnormality is identified. Impression: 1.No CT evidence of acute intra-abdominal abnormality. 2. Mild bladder wall thickening which could be due to partially decompressed state. Correlate with clinical evidence of mild cystitis
[2017-06-23 12:05] VITALS: BP 127/73
[2017-06-23] MEDS ORDERED: HYDR-971 PO (12:06)
[2017-06-23] MEDS ORDERED: ONDA4TAB10 SL (12:06)
== END 2017-06-23 12:28 | disposition home or self-care (01) ==
LOC: ER 09:59
DX: R10.10 Upper abdominal pain, unspecified (principal); I11.9 Hypertensive heart disease without heart failure; Z90.5 Acquired absence of kidney; Z95.1 Presence of aortocoronary bypass graft
CPT/HCPCS: 36415; 74176; 80053; 81001; 83690; 85025; 96361; 96374; 96375; 99285; J1200; J2270; J2405; J7030; S0028

== ENCOUNTER → 2017-09-07 | Outpatient (CLI) | payer OTHER ==
[2017-09-07 14:20] LABS: ADD MAN DIFF? NO
[2017-09-07 14:24] LABS: BASO % 1 % (0-3); EOS # 0.2 x10^3/uL (0.0-0.7); EOS % 4 % (0-3); HEMATOCRIT 43.3 % (39.0-53.0); HEMOGLOBIN 14.4 g/dL (13.0-17.5); LYMPH # 1.4 x10^3/uL (1.0-4.8); LYMPH % 27 % (24-48); MEAN CORPUSCULAR HEMOGLOBIN 31 pg (25-35); MEAN CORPUSCULAR HGB CONC 33 g/dL (31-37); MEAN CORPUSCULAR VOLUME 93 fL (79-100); MONO # 0.3 x10^3/uL (0.0-1.1); MONO % 6 % (0-9); NEUT # 3.3 x10^3uL (1.8-7.7); NEUT % 62 % (31-73); PLATELET COUNT 176 x10^3/uL (140-400); RED BLOOD COUNT 4.65 x10^6/uL (4.30-5.70); RED CELL DISTRIBUTION WIDTH 12.8 % (11.5-14.5); WHITE BLOOD COUNT 5.3 x10^3/uL (4.0-11.0)
[2017-09-07 14:44] LABS: ALBUMIN 3.2 g/dL (3.4-5.0); ANION GAP 9 (6-14); BLOOD UREA NITROGEN 11 mg/dL (8-26); CALCIUM 9.6 mg/dL (8.5-10.1); CARBON DIOXIDE 31 mmol/L (21-32); CHLORIDE 101 mmol/L (98-107); CREATININE 1.1 mg/dL (0.7-1.3); GFR 83.2; GLUCOSE 109 mg/dL (70-99); POTASSIUM 3.3 mmol/L (3.5-5.1); SODIUM 141 mmol/L (136-145); TOTAL BILIRUBIN 0.3 mg/dL (0.2-1.0)
== END | disposition home or self-care (01) ==
LOC: SURGPAT 13:23
DX: Z01.818 Encounter for other preprocedural examination (principal)
CPT/HCPCS: 36415; 80048; 82040; 82247; 85025

== ENCOUNTER 2017-09-10 10:30 | Day surgery (SDC) | payer OTHER ==
[~2017-09-10 10:30] MED LIST changes: -ALPR0.254 PO; -ASPI-482 PO; -CYCL5TAB PO; +GLUCAGON,HUMAN RECOMBINANT 1 MG/ML VIAL.; -HYDR-971 PO; -HYDR12.58 PO; +LIDOCAINE 1% PF 2 ML VIAL. ID; -LISI40TA PO; -METH5TAB2 PO; -METO50TA2 PO; +ONDANSETRON PF 4 MG/2 ML VIAL. IV; +PROCHLORPERAZINE 10 MG/2 ML VIAL. IV; +SURGICEL HEMOSTAT 4X8 EACH.; +ceFAZolin 2GM PREMIX 2 GM/50 ML BAG IV; +fentaNYL PF VIAL 100 MCG/2 ML VIAL IV
[2017-09-10] MEDS ORDERED: PROPOFOL 20 ML IV ×2 (11:15)
[2017-09-10] MEDS ORDERED: LIDOCAINE 2% PF Vial for OR 5 ML VIAL. ×2 (11:15)
[2017-09-10] MEDS ORDERED: ROCURONIUM 50 MG/5 ML VIAL. ×2 (11:16)
[2017-09-10] MEDS ORDERED: SUCCINYLCHOLINE 200 MG/10 ML VIAL. ×2 (11:16)
[2017-09-10] MEDS ORDERED: fentaNYL PF VIAL 100 MCG/2 ML VIAL ×6 (11:16→13:45)
[2017-09-10] MEDS: IV RINGERS,LACTATED 1000ML 1,000 ML IV ×2 (11:45)
[2017-09-10] MEDS: BUPIVAC MPF-EPI 0.5%-1:200000 30 ML VIAL. INJ ×2 (12:22)
[2017-09-10] MEDS: IOHEXOL 300 MG/ML 100ML VIAL. ×2 (12:22)
[2017-09-10] MEDS ORDERED: DESFLURANE 16 TO 30 MINUTES. IH ×2 (12:39)
[2017-09-10] MEDS ORDERED: NEOSTIGMINE 10 MG/10 ML VIAL. ×2 (12:39)
[2017-09-10] MEDS ORDERED: DEXAMETHASONE SOD PHOS 20 MG/5 ML VIAL. ×2 (12:39)
[2017-09-10] MEDS ORDERED: ONDANSETRON PF 4 MG/2 ML VIAL. ×2 (12:39)
[2017-09-10] MEDS ORDERED: GLYCOPYRROLATE 1 MG/5 ML VIAL. ×2 (12:40)
[2017-09-10] MEDS ORDERED: MORPHINE SULFATE 2 MG/ML DISP.SYRIN. ×2 (13:29)
[2017-09-10] MEDS ORDERED: diphenhydrAMINE 50 MG/ML VIAL ×2 (13:32)
[2017-09-10] MEDS: fentaNYL PF VIAL 100 MCG/2 ML VIAL IV ×8 (13:37→14:03)
[2017-09-10] MEDS: MORPHINE SULFATE 2 MG/ML DISP.SYRIN. IV ×4 (13:38→13:50)
[2017-09-10] MEDS: diphenhydrAMINE 50 MG/ML VIAL IVP ×2 (13:56)
[2017-09-10] MEDS: oxyCODONE/APAP 7.5/325 1 TAB TABLET PO ×2 (14:05)
[2017-09-10] MEDS ORDERED: HYDROmorphone 2 MG/ML VIAL ×2 (14:12)
[2017-09-10] MEDS: HYDROmorphone 2 MG/ML VIAL IV ×4 (14:17→14:31)
== END 2017-09-10 16:00 | disposition home or self-care (01) ==
LOC: SURG 10:30
DX: K80.10 Calculus of gallbladder with chronic cholecystitis without obstruction (principal); I25.10 Atherosclerotic heart disease of native coronary artery without angina pectoris; E78.00 Pure hypercholesterolemia, unspecified; M19.90 Unspecified osteoarthritis, unspecified site; Z87.39 Personal history of other diseases of the musculoskeletal system and connective tissue; Z98.890 Other specified postprocedural states; Z95.1 Presence of aortocoronary bypass graft; Z96.653 Presence of artificial knee joint, bilateral
CPT/HCPCS: 47563; 74300; 88304; J0330; J0690; J1100; J1170; J1200; J1610; J2270; J2405; J2704; J2710; J3010; J3490; J7030; Q9967

== ENCOUNTER → 2017-10-27 | Outpatient (CLI) | payer OTHER ==
[~2017-10-27] MED LIST changes: +CONTRAST GIVEN MC; -GLUCAGON,HUMAN RECOMBINANT 1 MG/ML VIAL.; -LIDOCAINE 1% PF 2 ML VIAL. ID; -ONDANSETRON PF 4 MG/2 ML VIAL. IV; -PROCHLORPERAZINE 10 MG/2 ML VIAL. IV; -SURGICEL HEMOSTAT 4X8 EACH.; -ceFAZolin 2GM PREMIX 2 GM/50 ML BAG IV; -fentaNYL PF VIAL 100 MCG/2 ML VIAL IV
[2017-10-27] MEDS: IOHEXOL 300 MG/ML 100ML VIAL. IV (12:06)
[2017-10-27] MEDS: IOHEXOL 240 MG/ML 50ML VIAL. PO (12:07)
== END | disposition home or self-care (01) ==
LOC: CT 10:12
DX: R10.31 Right lower quadrant pain (principal); M51.36 Other intervertebral disc degeneration, lumbar region; Z90.49 Acquired absence of other specified parts of digestive tract
CPT/HCPCS: 74177; Q9966

== ENCOUNTER → 2018-11-18 | Outpatient (CLI) | payer OTHER ==
[2017-09-10 15:00] VITALS: BP 154/88
[~2018-11-18] MED LIST changes: +ALPR0.254 PO; +AMLO10TA8 PO; +ASPI-482 PO; -CONTRAST GIVEN MC; +CONTRAST GIVEN. MC PRN; +CYCL5TAB PO; +DOCU-150 PO; +HYDR-3164 PO; +HYDR12.58 PO; +IOHEXOL 300 MG/ML 100ML VIAL. IV ONE; +LISI-130 PO; +LOSA100T14 PO; +METH5TAB2 PO; +METO50TA6 PO; +ONDA4TAB10 SL; +OXYC1TAB19 PO; +OXYC1TAB22 PO
[2018-11-18 12:43] LABS: CREATININE 1.1 mg/dL (0.7-1.3); GFR 82.6
--- NOTE | 2018-11-18 14:46 | RAD ---
CT ABD PELV W/ORAL IV CONTRAST Indication: Periumbilical pain near surgical incision, history of renal cell carcinoma and partial nephrectomy Technique: Postcontrast CT imaging was performed of the abdomen pelvis, multiplanar reconstruction images submitted. Oral contrast was given. One or more of the following individualized dose reduction techniques were utilized for this examination: 1. Automated exposure control 2. Adjustment of the mA and/or kV according to patient size 3. Use of iterative reconstruction technique. Comparison: October 27, 2017 Findings: There is some motion. There is no abnormality of the limited visualized lung bases. No new focal abnormality is identified of the pancreas, liver, spleen. There has been cholecystectomy. Both kidneys enhance, no hydronephrosis. There is no perinephric fluid collection. No discrete renal mass is identified. There is now nonspecific mild density extending superior to the umbilicus in the subcutaneous tissues, focus of density in this region about 1.5 cm transverse by 0.9 cm AP by about 2 cm CC. Centrally there is minimal fluid density, surrounding relative hyperdensity or enhancement present. There is atherosclerotic calcification of the abdominal aorta. There is no new significant lymphadenopathy or adrenal nodularity. Portal caval node about 1 cm short axis dimension is similar. Some small nodes superior to the celiac axis on the left are similar. Bowel is not significantly dilated. There is no free fluid or free air. No bowel containing hernia is identified. Normal appendix is visualized. There is diverticulosis of the descending and sigmoid colon not associated with significant inflammatory type change. There is circumferential prominence of urinary bladder etienne although not well distended during exam. There is minimal fat in the inguinal canals greater on the left as seen previously, no bowel. There is multilevel lumbar facet degenerative change, also degenerative disc disease greatest at L4-5. There is likely mild spinal stenosis L4-5. There is some variable lumbar neural foramina compromise. IMPRESSION: 1. There is now focus of nonspecific density in the central subcutaneous tissues superior to the umbilicus, small central area of fluid density of uncertain sterility, could be related to seroma and postoperative change versus tiny abscess. 2. There is colonic diverticulosis, no evidence of diverticulitis. 3. There is degenerative disc disease and spondylosis greatest at L4-5 at which there is likely mild spinal stenosis. Electronically signed by: Alexander Abad MD (11/18/2018 2:43 PM) [facility]
== END | disposition home or self-care (01) ==
LOC: CT 11:13
PROVIDERS: ATTEND Internal Medicine Gastroenterology
DX: C64.1 Malignant neoplasm of right kidney, except renal pelvis (principal); K57.90 Diverticulosis of intestine, part unspecified, without perforation or abscess without bleeding; M51.36 Other intervertebral disc degeneration, lumbar region; M47.816 Spondylosis without myelopathy or radiculopathy, lumbar region; I70.0 Atherosclerosis of aorta; Z90.49 Acquired absence of other specified parts of digestive tract; Z87.891 Personal history of nicotine dependence
CPT/HCPCS: 36415; 74177; 82565; 84520; Q9967

== ENCOUNTER → 2018-12-07 | Outpatient (CLI) | payer OTHER ==
[2017-09-10 15:00] VITALS: BP 154/88
[~2018-12-07] MED LIST changes: -CONTRAST GIVEN. MC PRN; -IOHEXOL 300 MG/ML 100ML VIAL. IV ONE
[2018-12-07 11:42] LABS: BASO # 0.1 x10^3/uL (0.0-0.2); BASO % 1 % (0-3); EOS # 0.3 x10^3/uL (0.0-0.7); EOS % 4 % (0-3); HEMATOCRIT 41.4 % (39.0-53.0); HEMOGLOBIN 14.1 g/dL (13.0-17.5); LYMPH # 2.2 x10^3/uL (1.0-4.8); LYMPH % 29 % (24-48); MEAN CORPUSCULAR HEMOGLOBIN 31 pg (25-35); MEAN CORPUSCULAR HGB CONC 34 g/dL (31-37); MEAN CORPUSCULAR VOLUME 91 fL (79-100); MONO # 0.8 x10^3/uL (0.0-1.1); MONO % 10 % (0-9); NEUT # 4.4 x10^3uL (1.8-7.7); NEUT % 56 % (31-73); PLATELET COUNT 201 x10^3/uL (140-400); RED BLOOD COUNT 4.54 x10^6/uL (4.30-5.70); RED CELL DISTRIBUTION WIDTH 13.5 % (11.5-14.5); WHITE BLOOD COUNT 7.8 x10^3/uL (4.0-11.0)
[2018-12-07 11:52] LABS: ALBUMIN 3.3 g/dL (3.4-5.0); CALCIUM 9.5 mg/dL (8.5-10.1); CREATININE 1.2 mg/dL (0.7-1.3); GFR 74.7; POTASSIUM 3.2 mmol/L (3.5-5.1)
== END | disposition home or self-care (01) ==
LOC: SURGPAT 11:00
PROVIDERS: ATTEND Surgery
DX: Z01.818 Encounter for other preprocedural examination (principal); K43.9 Ventral hernia without obstruction or gangrene; K43.2 Incisional hernia without obstruction or gangrene
CPT/HCPCS: 36415; 80048; 82040; 85025

== ENCOUNTER 2018-12-09 09:17 | Day surgery (SDC) | payer OTHER ==
[~2018-12-09] VITALS: Ht 175.3 cm; Wt 132.4 kg
[~2018-12-09 09:17] MED LIST changes: -DOCU-150 PO; +HYDROmorphone 2 MG/ML VIAL IV PRN; +IV RINGERS,LACTATED 1000ML 1,000 ML IV SCH; +LIDOCAINE 1% PF 2 ML VIAL. ID PRN; +MORPHINE SULFATE 2 MG/ML VIAL. IV PRN; +ONDANSETRON PF 4 MG/2 ML VIAL. IV PRN; -OXYC1TAB22 PO; +PROCHLORPERAZINE 10 MG/2 ML VIAL. IV PRN; +ceFAZolin SODIUM 3 GM in IV DEXTROSE 5% 100ML 100 ML IV PRN; +fentaNYL PF VIAL 100 MCG/2 ML VIAL IV PRN
[2018-12-09] MEDS ORDERED: BUPIVAC MPF-EPI 0.5%-1:200000 30 ML VIAL. ONE (10:11)
[2018-12-09] MEDS ORDERED: BUPIVACAINE MPF 0.5% 30 ML VIAL. ONE (10:16)
[2018-12-09] MEDS ORDERED: fentaNYL PF VIAL 100 MCG/2 ML VIAL ONE ×2 (10:52→12:45)
[2018-12-09] MEDS ORDERED: PROPOFOL 20 ML IV ONE (10:52)
[2018-12-09] MEDS ORDERED: LIDOCAINE 2% PF 5 ML VIAL. ONE (10:52)
[2018-12-09] MEDS ORDERED: DEXAMETHASONE SOD PHOS 20 MG/5 ML VIAL. ONE (11:30)
[2018-12-09] MEDS ORDERED: SEVOFLURANE 61 TO 120 MINUTES. IH ONE (11:30)
[2018-12-09] MEDS ORDERED: SUCCINYLCHOLINE 200 MG/10 ML VIAL. ONE (11:31)
[2018-12-09] MEDS ORDERED: ROCURONIUM 50 MG/5 ML VIAL. ONE (11:38)
[2018-12-09] MEDS ORDERED: ONDANSETRON PF 4 MG/2 ML VIAL. ONE (11:47)
[2018-12-09] MEDS ORDERED: GLYCOPYRROLATE 1 MG/5 ML VIAL. ONE (11:48)
[2018-12-09] MEDS ORDERED: NEOSTIGMINE METHYLSULFATE 5 MG/5 ML SYRINGE. ONE (11:48)
--- NOTE | 2018-12-09 12:10 | PDOC ---
BRIEF OPERATIVE NOTE Date: December 09, 2018 Pre-Op Diagnosis ventral incisional hernia above the umbilicus Post-Op Diagnosis same Procedure Performed primary repair Surgeon Scott Anesthesia Type: General Blood Loss 5cc IV Fluid 200cc Specimens Obtained none Findings well defined hernia sack Complications none Operative Note Wk # [id number] LEONOR PATTEN MD December 09, 2018 12:10
--- NOTE | 2018-12-09 12:16 | OP ---
DATE OF SURGERY: 12/09/2018 PREOPERATIVE DIAGNOSIS: Ventral incisional hernia above the umbilicus from previous laparoscopic cholecystectomy. POSTOPERATIVE DIAGNOSIS: Ventral incisional hernia above the umbilicus from previous laparoscopic cholecystectomy. PROCEDURE: Primary repair. SURGEON: Leonor Patten MD ANESTHESIA: General endotracheal. ESTIMATED BLOOD LOSS: 5. INTRAVENOUS: 200. INDICATIONS: The patient is a 58-year-old status post previous laparoscopic cholecystectomy. He has pain and fullness in the supraumbilical incision. DESCRIPTION OF PROCEDURE: The patient brought to the operating suite, given a general endotracheal anesthetic and the abdomen prepped and draped in usual sterile fashion. An elliptical incision was made around the transverse scar just above the umbilicus. Dissection carried down to the anterior sheath where well-defined hernia sac was identified, skeletonized and reduced. The small fascial defect was closed with interrupted inverted [id number] 0 PDS avoiding abdominal contents. An 0 Vicryl suture was used to reinforce the repair. Good hemostasis was present and a correct sponge count obtained. Subcutaneous approximated with 3-0 Vicryl, skin closed with a subcuticular 4-0 Monocryl. Steri-Strips and sterile dressing applied. Abdominal binder placed. The patient was awakened from his anesthetic and taken to the recovery room in satisfactory condition. LEONOR PATTEN MD DR: [email or web address]/eva JOB#: [id number] / [id number]
[2018-12-09] MEDS ORDERED: OXYC1TAB22 PO (13:22)
[2018-12-09] MEDS ORDERED: DOCU-150 PO (13:24)
--- NOTE | 2018-12-09 13:33 | DISCH ---
DISCHARGE INSTRUCTIONS Condition on Discharge Condition on Discharge: Stable Activity After Discharge Activity Instructions for Disc: Activity as tolerated, Avoid exertion Lifting Instructions after Dis: No heavy lifting Driving Instructions after Dis: Do not drive (2-3 days) Weight Bearing Status after Di: No restrictions Diet after Discharge Diet after Discharge: Regular Wound Incision Care Wound/Incision Care: Ice to area for comfort Other wound/incision instructi: november shower Wednesday, wear binder when up and about Follow-Up Follow up with: Scott two weeks Treatment/Equipment after DC Adaptive Equipment Issued: None LEONOR PATTEN MD December 09, 2018 13:33
[2018-12-09] MEDS ORDERED: oxyCODONE/APAP 10/325 1 TAB TABLET ONE (13:48)
[2018-12-09] MEDS ORDERED: oxyCODONE/APAP 10/325 1 TAB TABLET PO ONE (14:00)
[2018-12-09 14:15] VITALS: BP 137/78
== END 2018-12-09 14:27 | disposition home or self-care (01) ==
LOC: SURG 09:17
PROVIDERS: ATTEND Surgery
DX: K43.2 Incisional hernia without obstruction or gangrene (principal); I10 Essential (primary) hypertension; I25.10 Atherosclerotic heart disease of native coronary artery without angina pectoris; Z95.5 Presence of coronary angioplasty implant and graft; Z96.653 Presence of artificial knee joint, bilateral; Z82.49 Family history of ischemic heart disease and other diseases of the circulatory system; Z79.899 Other long term (current) drug therapy; Z90.49 Acquired absence of other specified parts of digestive tract; Z79.82 Long term (current) use of aspirin; Z83.3 Family history of diabetes mellitus
CPT/HCPCS: 49560; A7015; J0330; J1100; J2001; J2405; J2704; J2710; J3010; J3490

== ENCOUNTER 2019-04-09 20:06 | Emergency (ER) | payer OTHER ==
[~2019-04-09] VITALS: Ht 180.3 cm; Wt 129.3 kg
[~2019-04-09 20:06] MED LIST changes: +DOCU-150 PO; -HYDROmorphone 2 MG/ML VIAL IV PRN; -IV RINGERS,LACTATED 1000ML 1,000 ML IV SCH; -LIDOCAINE 1% PF 2 ML VIAL. ID PRN; -MORPHINE SULFATE 2 MG/ML VIAL. IV PRN; -ONDANSETRON PF 4 MG/2 ML VIAL. IV PRN; +OXYC1TAB22 PO; -PROCHLORPERAZINE 10 MG/2 ML VIAL. IV PRN; -ceFAZolin SODIUM 3 GM in IV DEXTROSE 5% 100ML 100 ML IV PRN; -fentaNYL PF VIAL 100 MCG/2 ML VIAL IV PRN
[2019-04-09 20:14] VITALS: BP 145/79
--- NOTE | 2019-04-09 20:56 | PHYS DOC ---
Past Medical History Past Medical History: Cancer, Diverticulitis, Heart Disease, Hypertension Additional Past Medical Histor: renal cell cancer Past Surgical History: Coronary Bypass Surgery, Other Additional Past Surgical Histo: Bilateral knee arthroscopy. laproscopic rlq abd - R partial nephrectomy Smoking: Less than 1pk/day Alcohol Use: None Drug Use: None Adult General Chief Complaint Chief Complaint: Neck Pain HPI HPI Patient is a 58 year old AA male, accompanied by his family, who presents to the emergency department with complaints of a swollen, tender area to his right neck that began today. Patient states he has had some upper respiratory problems earlier this week with a little bit of a dry cough, nasal congestion, runny nose, throat clearing, and mild sore throat. Patient has had red watery eyes recently. Currently rates his pain as 3 out of 10 on the pain scale, he states that the pain increases when he swallows, he denies any alleviating factors. Review of Systems Review of Systems Constitutional: Denies fever or chills [] Eyes: Denies change in visual acuity, or eye pain; see history of present illness HENT: See history of present illness Respiratory: Denies wheezing or shortness of breath ; see history of present illness[] Cardiovascular: No additional information not addressed in HPI [] GI: Denies abdominal pain, nausea, vomiting, or diarrhea [] Musculoskeletal: Denies back pain or joint pain [] Integument: Denies rash or skin lesions [] Neurologic: Denies headache Complete systems were reviewed and found to be within normal limits, except as documented in this note. Allergies Allergies Allergies Coded Allergies Type Severity Reaction Last Updated Verified No Known Drug Allergies 12/07/18 No Physical Exam Physical Exam Constitutional: Well developed, well nourished, no acute distress, non-toxic appearance, obese. [] HENT: Normocephalic, atraumatic, bilateral external ears normal, bilateral TMs n ormal, cobblestone appearance of posterior pharynx without erythema, Oropharynx moist, no oral exudates, nasal turbinates edematous and erythematous bilaterally Eyes: PERRLA, EOMI, conjunctiva injected bilaterally, no discharge. [] Neck: Normal range of motion, supple, no stridor; palpable, smooth, movable, right cervical lymph node enlargement with tenderness to palpation, Cardiovascular:Heart rate regular rhythm, no murmur [] Lungs & Thorax: Bilateral breath sounds clear to auscultation [] Skin: Warm, dry, no erythema, no rash. [] Back: No tenderness Extremities: No cyanosis, ROM intact, no edema. [] Neurologic: Alert and oriented X 3, no focal deficits noted. [] Psychologic: Affect normal, judgement normal, mood normal. [] Current Patient Data Vital Signs Vital Signs Date Time Temp Pulse Resp B/P (MAP) Pulse Ox O2 Delivery O2 Flow Rate FiO2 04/09/19 20:14 98.0 63 14 145/79 (101) 94 Room Air 98.0 EKG EKG [] Radiology/Procedures Radiology/Procedures [] Course & Med Decision Making Course & Med Decision Making Pertinent Labs and Imaging studies reviewed. (See chart for details) dx: Allergic rhinitis, enlarged lymph node in neck, URI Patient was instructed to STOP SMOKING. Recommended 10 mg of generic Zyrtec (cetirizine) or Claritin at bedtime and use of over the counter Flonase (fluticasone) nasal spray 2 sprays each nostril once daily in the morning. Tylenol or ibuprofen as needed for pain/fever. Increase clear fluids. Avoid triggers such as smoke, fragrance, dust, and pollen. OTC cough suppressants as needed. Follow-up with your primary care doctor if symptoms persist, return to the ER if symptoms worsen. [] Dragon Disclaimer Dragon Disclaimer This electronic medical record was generated, in whole or in part, using a voice recognition dictation system. Departure Departure Impression: Primary Impression: Allergic rhinitis Additional Impressions: Enlarged lymph node in neck URI (upper respiratory infection) Disposition: 01 HOME, SELF-CARE Condition: STABLE Referrals: RICARDO CRANDALL (PCP) Patient Instructions: Allergic Rhinitis Additional Instructions: STOP SMOKING. Recommend that you take 10 mg of generic Zyrtec (cetirizine) or Claritin at bedtime and use over the counter Flonase (fluticasone) nasal spray 2 sprays each nostril once daily in the morning. You may take Tylenol or ibuprofen as needed for pain/fever. Increase clear fluids. Avoid triggers such as smoke, fragrance, dust, and pollen. You may take OTC cough suppressants as needed. Follow-up with your primary care doctor if symptoms persist, return to the ER if symptoms worsen. Problem Qualifiers Primary Impression: Allergic rhinitis Allergic rhinitis trigger: unspecified Allergic rhinitis seasonality: unspecified Qualified Codes: J30.9 - Allergic rhinitis, unspecified Additional Impressions: URI (upper respiratory infection) URI type: unspecified URI Qualified Codes: J06.9 - Acute upper respiratory infection, unspecified AMBIKA SENA APRN Apr 09, 2019 20:56
== END 2019-04-09 21:08 | disposition home or self-care (01) ==
LOC: ER 20:06
DX: J06.9 Acute upper respiratory infection, unspecified (principal); J30.9 Allergic rhinitis, unspecified; R59.0 Localized enlarged lymph nodes; F17.200 Nicotine dependence, unspecified, uncomplicated; Z95.1 Presence of aortocoronary bypass graft; I11.9 Hypertensive heart disease without heart failure; Z85.89 Personal history of malignant neoplasm of other organs and systems; Z90.5 Acquired absence of kidney
CPT/HCPCS: 99281

== ENCOUNTER → 2019-09-18 | Outpatient (CLI) | payer OTHER ==
[~2019-09-18] MED LIST changes: +CONTRAST GIVEN. MC PRN; +IOHEXOL 300 MG/ML 100ML VIAL. IV ONE
--- NOTE | 2019-09-18 13:54 | RAD ---
CT ABD PELV W/ IV CONTRST ONLY Indication: Supraumbilical pain. Exposure: One or more of the following individualized dose reduction techniques were utilized for this examination: 1. Automated exposure control 2. Adjustment of the mA and/or kV according to patient size 3. Use of iterative reconstruction technique. Technique: Intravenous contrast was given. No oral contrast per request. Comparison: 11/18/2018. FINDINGS: Lung bases are clear. Coronary artery calcifications. Liver appears unremarkable. Spleen unremarkable. Pancreas unremarkable. No evidence of adrenal mass. Kidneys demonstrate symmetric enhancement without focal mass or hydronephrosis. Surgical clips are identified in the region of the renal hilum and vascular pedicle, and right adrenal gland. Gallbladder is surgically absent. Aorta calcified without aneurysm. No significant pathologic lymph node enlargement is identified. Stomach is not distended. No significant small bowel distention. Colonic diverticulosis. No evidence of acute colitis. The appendix appears normal. No evidence of ascites. No evidence of pneumoperitoneum. Mild urinary bladder wall thickening, similar prior study, likely accentuated by lack of distention. Degenerative spondylosis, particularly at L4-L5, with stenosis. Degenerative changes of both hips. No evidence of aggressive bone destruction or acute fracture. There is soft tissue density which was previously identified and described, is again identified and appears similar, just superior to the umbilicus. This is probably separate from small bowel loop which is immediately deep to the adjacent bowel wall. IMPRESSION: 1. Colonic diverticulosis without evidence of acute colitis. 2. Small soft tissue mass or lesion just above the umbilicus appears unchanged. Significance uncertain. 3. Degenerative spondylosis and stenosis are again seen. Electronically signed by: Dami Velasco MD (09/18/2019 1:51 PM) [id number]
== END | disposition home or self-care (01) ==
LOC: CT 09:20
PROVIDERS: ATTEND Surgery
DX: K57.30 Diverticulosis of large intestine without perforation or abscess without bleeding (principal); I25.10 Atherosclerotic heart disease of native coronary artery without angina pectoris; M47.816 Spondylosis without myelopathy or radiculopathy, lumbar region; M48.061 Spinal stenosis, lumbar region without neurogenic claudication; I70.0 Atherosclerosis of aorta; M16.0 Bilateral primary osteoarthritis of hip; N32.89 Other specified disorders of bladder; Z90.49 Acquired absence of other specified parts of digestive tract
CPT/HCPCS: 74177; Q9967

== ENCOUNTER → 2019-10-06 | Outpatient (CLI) | payer OTHER ==
[~2019-10-06] MED LIST changes: -CONTRAST GIVEN. MC PRN; -IOHEXOL 300 MG/ML 100ML VIAL. IV ONE
--- NOTE | 2019-10-06 15:44 | RAD ---
Gastric Emptying Study 10/06/2019 Indication: Epigastric pain, x1 month Procedure: Anterior and posterior projection static images are obtained over the stomach following oral administration of 2 mCi of 99 M technetium sulfur colloid in a solid Time points include an immediate baseline, and 1, 2, and 3 hours post ingestion. Findings: There is progressive emptying of the stomach on sequential images. Percentage retention at... One hour is 46% (normal 34.8-91%). Two hours 22% (normal 2.7-60%). Three hours 3% (normal 0.5-28%). Impression: Normal gastric emptying time Consensus Recommendations for Gastric Emptying Scintigraphy: A Joint Report of the [place] [employer]astro[employer] Society and the Society of Nuclear Medicine: J. Nucl. Med. Technol. October 2007 vol. 36 no. 1 44-54 Grading for severity of delayed GE based on the 4-h value: grade 1 (mild): 11?20% retention at 4 h grade 2 (moderate): 21?35% retention at 4 h grade 3 (severe): 36?50% retention at 4 h grade 4 (very severe): >50% retention at 4 h. Electronically signed by: George Longoria MD (10/06/2019 3:41 PM) [id number]
== END | disposition home or self-care (01) ==
LOC: NM 08:23
PROVIDERS: ATTEND Internal Medicine Gastroenterology
DX: R10.13 Epigastric pain (principal)
CPT/HCPCS: 78264; A9541

== ENCOUNTER 2020-01-05 09:34 | Day surgery (SDC) | payer OTHER ==
[~2020-01-05] VITALS: Ht 180.3 cm; Wt 126.5 kg
[~2020-01-05 09:34] MED LIST changes: +CARV3.1210 PO; +DEXAMETHASONE SOD PHOS 4 MG/ML VIAL ONE; +FURO20TA3 PO; +HYDROmorphone 2 MG/ML VIAL IV PRN; +IV RINGERS,LACTATED 1000ML 1,000 ML IV SCH; +LIDOCAINE 1% PF 2 ML VIAL. ID PRN; +LIDOCAINE 2% PF 5 ML VIAL. ONE; +MIDAZOLAM HCL/PF 2 MG/2 ML VIAL. ONE; +MORPHINE SULFATE 2 MG/ML VIAL. IV PRN; +ONDANSETRON PF 4 MG/2 ML VIAL. IV PRN; +ONDANSETRON PF 4 MG/2 ML VIAL. ONE; +PRAV20TA2 PO; +PROCHLORPERAZINE 10 MG/2 ML VIAL. IV PRN; +PROPOFOL 10 MG/ML (20ML) VIAL. IV ONE; +SEVOFLURANE 31 TO 60 MINUTES. IH ONE; +ceFAZolin SODIUM 3 GM in IV DEXTROSE 5% 100ML 100 ML IV PRN; +fentaNYL PF VIAL 100 MCG/2 ML VIAL IV PRN; +fentaNYL PF VIAL 100 MCG/2 ML VIAL ONE
[2020-01-05] MEDS ORDERED: BUPIVACAINE MPF 0.5% 30 ML VIAL. ONE (10:00)
[2020-01-05] MEDS ORDERED: DEXAMETHASONE SOD PHOS 4 MG/ML VIAL ONE (10:10)
[2020-01-05] MEDS ORDERED: ROCURONIUM 50 MG/5 ML VIAL. ONE (10:10)
[2020-01-05] MEDS ORDERED: fentaNYL PF VIAL 100 MCG/2 ML VIAL ONE ×2 (11:26→11:40)
[2020-01-05] MEDS ORDERED: OXYC1TAB22 PO (12:29)
--- NOTE | 2020-01-05 12:31 | DISCH ---
DISCHARGE INSTRUCTIONS Condition on Discharge Condition on Discharge: Stable Activity After Discharge Activity Instructions for Disc: Activity as tolerated, Avoid exertion Lifting Instructions after Dis: No heavy lifting Driving Instructions after Dis: Do not drive Weight Bearing Status after Di: No restrictions Diet after Discharge Diet after Discharge: Regular Wound Incision Care Wound/Incision Care: Ice to area for comfort Other wound/incision instructi: abdominal binder Follow-Up Follow up with: Scott in a week Treatment/Equipment after DC Adaptive Equipment Issued: None LEONOR PATTEN MD Jan 05, 2020 12:31
--- NOTE | 2020-01-05 12:37 | PDOC ---
BRIEF OPERATIVE NOTE Date: Jan 05, 2020 Pre-Op Diagnosis supraumbilical mass Post-Op Diagnosis recurrent ventral incisional hernia Procedure Performed primary repair Surgeon Scott GUY Anesthesia Type: General Blood Loss 10cc IV Fluid 300cc Specimens Obtained none Findings recurrent hernia Complications none Operative Note Wk # [id number] LEONOR PATTEN MD Jan 05, 2020 12:37
[2020-01-05] MEDS ORDERED: oxyCODONE/APAP 10/325 1 TAB TABLET PO ONE (12:45)
--- NOTE | 2020-01-05 12:45 | OP ---
DATE OF SURGERY: 01/05/2020 PREOPERATIVE DIAGNOSIS: Supraumbilical mass. POSTOPERATIVE DIAGNOSIS: Recurrent ventral incisional hernia. PROCEDURE: Primary repair. SURGEON: Ashvin Patten MD TOOL MAKER BENCH: BROOKS Yuan ANESTHESIA: General LMA. ESTIMATED BLOOD LOSS: 10 mL. INTRAVENOUS FLUIDS: 300 mL. INDICATIONS: The patient is a 59-year-old who after a laparoscopic cholecystectomy, developed a supraumbilical hernia through the previous port site. This was repaired. Over the last few months, he has had recurrent pain and fullness there and is brought now for removal of the palpable mass. OPERATIVE FINDINGS: Fullness exposure during the surgery identified a recurrence of the previous repair. DESCRIPTION OF PROCEDURE: The patient brought to the operating suite, given a general LMA and the abdomen prepped and draped in usual sterile fashion. A 0.5% Marcaine was infiltrated around the old scar, which was then excised. Dissection was carried down to the anterior sheath, where the area of recurrent hernia was identified and mobilized circumferentially. A plane developed deep to the fascia extraperitoneally and this allowed closure primarily with a running stitch of looped 0 PDS tied in the middle, taking care to avoid injury to abdominal contents. A second row of 0 Vicryl was used to reinforce the repair. When a correct sponge count was obtained, the wound was closed by approximating the subcutaneous tissue with 3-0 Vicryl. The skin was closed with a subcuticular 4-0 Monocryl, Xeroform and dressing placed. Abdominal binder applied. The patient was awakened from his anesthetic and taken to the recovery room in stable condition. ASHVIN PATTEN MD DR: MAXIME/eva JOB#: [id number] / [id number]
[2020-01-05 12:52] VITALS: BP 147/54
== END 2020-01-05 13:26 | disposition home or self-care (01) ==
LOC: SURG 09:34
PROVIDERS: ATTEND Surgery
DX: K43.2 Incisional hernia without obstruction or gangrene (principal); I10 Essential (primary) hypertension; E78.00 Pure hypercholesterolemia, unspecified; I25.10 Atherosclerotic heart disease of native coronary artery without angina pectoris; E66.9 Obesity, unspecified; Z68.32 Body mass index [BMI] 32.0-32.9, adult; Z79.82 Long term (current) use of aspirin; Z95.1 Presence of aortocoronary bypass graft
CPT/HCPCS: 36415; 49565; 84132; A7015; C1769; J1100; J2250; J2405; J2704; J3010; J3490

== ENCOUNTER → 2020-07-31 | Outpatient (CLI) | payer OTHER ==
[~2020-07-31] MED LIST changes: +AMLO-187 PO; -AMLO10TA8 PO; -DEXAMETHASONE SOD PHOS 4 MG/ML VIAL ONE; -HYDROmorphone 2 MG/ML VIAL IV PRN; +IOHEXOL 240 MG/ML 50ML VIAL. PO ONE; +IOHEXOL 300 MG/ML 100ML VIAL. IV ONE; -IV RINGERS,LACTATED 1000ML 1,000 ML IV SCH; -LIDOCAINE 1% PF 2 ML VIAL. ID PRN; -LIDOCAINE 2% PF 5 ML VIAL. ONE; -MIDAZOLAM HCL/PF 2 MG/2 ML VIAL. ONE; -MORPHINE SULFATE 2 MG/ML VIAL. IV PRN; -ONDANSETRON PF 4 MG/2 ML VIAL. IV PRN; -ONDANSETRON PF 4 MG/2 ML VIAL. ONE; -PROCHLORPERAZINE 10 MG/2 ML VIAL. IV PRN; -PROPOFOL 10 MG/ML (20ML) VIAL. IV ONE; -SEVOFLURANE 31 TO 60 MINUTES. IH ONE; -ceFAZolin SODIUM 3 GM in IV DEXTROSE 5% 100ML 100 ML IV PRN; -fentaNYL PF VIAL 100 MCG/2 ML VIAL IV PRN; -fentaNYL PF VIAL 100 MCG/2 ML VIAL ONE
[2020-07-31 08:52] LABS: GFR 91.9
--- NOTE | 2020-07-31 10:49 | RAD ---
Examination: CT ABDOMEN+PELVIS W History: HX OF VENTRAL HERNIA / Spl. Instructions: omni 300 75ml omni 240 50ml / Comparison/Correlation: 09/18/2019 CT abdomen and pelvis with contrast Findings: Axial images of the abdomen and pelvis were obtained following IV contrast. Sagittal and co max reformatted images were provided. Visualized lung bases are clear. Cholecystectomy noted. Liver and spleen are unremarkable. Pancreas is unremarkable. Adrenal glands are normal. Surgical clips abo ut the right hilum noted. Kidneys unremarkable. Appendix is unremarkable. Diverticulosis of the colon is evident. No extraluminal gas. No bowel obstr uction. Urinary bladder is unremarkable. No extraluminal gas. Significant L4-5 disc space narrowing is present with vacuum disc phenomenon and concentric disc bulg e. Small umbilical hernia contains omental fat. Minimal extension of small bowel into the hernia is pres ent. Hernia defect measures approximately 3.4 cm longitudinal by 2.7 cm transverse. Impression: Umbilical hernia containing omental fat and minimal extension of small bowel into the hernia. Overall hernia defect size is slightly greater compared to prior exam. No mass identified at the hernia defe ct. Diverticulosis. Electronically signed by: Shar Jones MD (07/31/2020 10:46 AM) [id number]
== END ==
LOC: CT 07:49
PROVIDERS: ATTEND Surgery
DX: K42.0 Umbilical hernia with obstruction, without gangrene (principal); K57.30 Diverticulosis of large intestine without perforation or abscess without bleeding; Z87.19 Personal history of other diseases of the digestive system; Z90.49 Acquired absence of other specified parts of digestive tract
CPT/HCPCS: 36415; 74177; 82565; 84520; Q9966; Q9967